=== PATIENT | male | born 2000 | race Caucasian/White ===

== ENCOUNTER 2021-08-01 10:46 | Emergency (ER) | payer BC, SELFPAY ==
[2021-08-01 10:55] VITALS: BP 155/88; PULSE 89; RESP 17; TEMP 35.9; O2SAT 99
[2021-08-01 11:39] VITALS: BP 154/70; PULSE 83; RESP 21; O2SAT 97
[2021-08-01 12:26] LABS: Basophils Percent Auto 0.3 % (0.2-1.2); Eosinophils Absolute Auto 0.1 K/mm3 (0-0.3); Hemoglobin 15.7 g/dL (14.0-18.0); Immature Granulocyte Absolute 0.01 K/mm3 (0.00-0.031); Immature Granulocyte Percent A 0.2 % (0-0.5); Lymphocytes Absolute Auto 1.02 K/mm3 (0.9-3.2); Mean Corpuscular HGB Conc 34.1 g/dl (32-36); Mean Corpuscular Hemoglobin 29.2 pg (26-34); Mean Corpuscular Volume 85.7 fl (80-100); Mean Platelet Volume 11.6 fl (7.4-10.4); Monocytes Absolute Auto 0.6 K/mm3 (0.1-0.6); Monocytes Percent Auto 9.6 % (2.6-8.5); Neutrophils Absolute Auto 4.6 K/mm3 (1.3-6.7); Neutrophils Percent Auto 71.9 % (45.5-73.1); Platelet Count Result 194 k/mm3 (150-375); Red Blood Count 5.37 M/mm3 (4.6-6.20); Red Cell Distribution Width 12.6 % (11.5-14.5); White Blood Count 6.4 K/mm3 (4.5-10.0)
[2021-08-01 12:44] LABS: Alanine Aminotransferase 49 U/L (4-50); Albumin Level 4.4 g/dL (3.5-5.1); Alkaline Phosphatase 74 U/L (38-126); Anion Gap 7 mmol/L (8-16); Aspartate Amino Transferase 28 U/L (17-59); Bilirubin,Total 1.2 mg/dL (0.2-1.3); Blood Urea Nitrogen 15 mg/dL (9-20); Calcium 9.7 mg/dL (8.4-10.2); Carbon Dioxide 25 mmol/L (22-30); Chloride 107 mmol/L (98-107); Estimated CRCL calculation 252 ml/min; Estimated Glomerular Filt Rate > 60; Glucose 108 mg/dL (65-110); Potassium 4.3 mmol/L (3.4-5.0); Sodium 139 mmol/L (137-145)
[2021-08-01 13:05] VITALS: BP 147/73; PULSE 64; RESP 18; O2SAT 99
--- NOTE | 2021-08-01 14:05 | ED.GENADULT ---
HPI - General Adult General Chief complaint: Recheck/Abnormal Lab/Rx Stated complaint: high blood pressure Time Seen by Provider: 08/01/21 11:11 Source: patient Mode of arrival: ambulatory Limitations: no limitations History of Present Illness HPI narrative: 21-year-old here with complaints of nausea, feeling dizzy since this morning. 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 Upon arrival patient denies any chest pain, dizziness, abdominal pain. Patient states that he was diagnosed with high blood pressure long time ago but has never followed up with a doctor. Onset (ago): hour(s) (2) Related Data Allergies Allergy/AdvReac Type Severity Reaction Status Date / Time amoxicillin Allergy Hives Verified 08/01/21 11:14 Review of Systems Review of Systems: All systems reviewed & are unremarkable except as noted in HPI and below Constitutional: Constitutional: Reports no additional constitutional complaints Eyes: Eyes: Reports no additional eye complaints ENT: Reports system reviewed and no additional complaints, except as documented Cardiovascular: Cardiovascular: Reports no additional cardiovascular complaints Respiratory: Respiratory: Reports no additional respiratory complaints Gastrointestinal: Gastrointestinal: Reports as per HPI Musculoskeletal: Musculoskeletal: Reports no additional musculoskeletal complaints Integumentary/Breasts: Skin/Breast: Reports system reviewed and no additional complaints, except as docu Exam Narrative: GENERAL: Well-appearing, well-nourished, and in no acute distress. HEAD: Normocephalic, atraumatic. EYES: PERRLA and EOMI. ENT: Nares clear, no rhinorrhea or epistaxis. Mucous membranes moist. NECK: Supple. CHEST: Clear to auscultation. No respiratory distress. HEART: Regular rate and rhythm. No murmur heard. Normal peripheral pulses. ABDOMEN: Soft, nontender, nondistended, normal active bowel sounds. EXTREMITIES: Normal range of motion. No edema. SKIN: Warm, dry, no rash. NEURO: No focal deficits. Alert and oriented x3. PSYCH: Normal mood and affect. Course Course Emergency Course: Inform patient about his lab work, advised him to be on low-salt diet, exercise and weight reduction. Take medication as prescribed. Follow-up with Dr. Valerio. I did discuss with Dr. Valerio will see the patient if he can make an appointment Vital Signs Vital signs: Vital Signs Temperature 35.9 C L 08/01/21 10:55 Pulse Rate 89 08/01/21 10:55 Respiratory Rate 17 08/01/21 10:55 Blood Pressure 155/88 H 08/01/21 10:55 Pulse Oximetry 99 08/01/21 10:55 Temperature 35.9 C L 08/01/21 10:55 Pulse Rate 64 08/01/21 13:05 Respiratory Rate 18 08/01/21 13:05 Blood Pressure 147/73 H 08/01/21 13:05 Pulse Oximetry 99 08/01/21 13:05 Medical Decision Making Vital Signs Vital Signs: Vital Signs Temperature 35.9 C L 08/01/21 10:55 Pulse Rate 89 08/01/21 10:55 Respiratory Rate 17 08/01/21 10:55 Blood Pressure 155/88 H 08/01/21 10:55 Pulse Oximetry 99 08/01/21 10:55 Temperature 35.9 C L 08/01/21 10:55 Pulse Rate 64 08/01/21 13:05 Respiratory Rate 18 08/01/21 13:05 Blood Pressure 147/73 H 08/01/21 13:05 Pulse Oximetry 99 08/01/21 13:05 Lab Data Result diagrams: 08/01/21 12:20 08/01/21 12:19 Labs: Lab Results 08/01/21 08/01/21 Range/Units 12:19 12:20 WBC 6.4 (4.5-10.0) K/mm3 RBC 5.37 (4.6-6.20) M/mm3 Hgb 15.7 (14.0-18.0) g/dL Hct 46.0 (42.0-52.0) % MCV 85.7 (80-100) fl MCH 29.2 (26-34) pg MCHC 34.1 (32-36) g/dl RDW 12.6 (11.5-14.5) % Plt Count 194 (150-375) k/mm3 MPV 11.6 H (7.4-10.4) fl Immature Gran % (Auto) 0.2 (0-0.5) % Neut % (Auto) 71.9 (45.5-73.1) % Lymph % (Auto) 16.0 L (18.3-44.2) % [place] % (Auto) 9.6 H
[2021-08-01 15:24] LABS: Add Urine Microscopic? YES; Appearance Urine Clear (Clear); Bilirubin Urine Negative (Negative); Blood Urine Negative (Negative); Color Urine Yellow (Yellow); Glucose Urine UA Negative (Negative); Ketones Urine Negative (Negative); Leukocyte Esterase Ur Negative LEU/UL (Negative); Mucus Urine Rare /lpf; Nitrate Urine Negative (Negative); Protein Urine 1+ mg/dL (Negative); Urobilinogen Urine Negative mg/dL (<2.0); WBC Urine 0-3 /hpf
== END 2021-08-01 14:31 | disposition home or self-care (01) ==
PROVIDERS: Emergency Provider Family Medicine; PCP Internal Medicine
DX: I10 Essential (primary) hypertension (principal)
CPT/HCPCS: 36415; 80053; 81001; 84443; 85025; 99283

== ENCOUNTER 2025-10-16 10:17 | Emergency (ER) | payer BC, SELFPAY ==
--- NOTE | ~2025-10-16 | XR_ITS ---
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 Findings: Nondisplaced fracture of the radial head with intra-articular extension No significant degenerative changes. Soft tissues unremarkable. Impression: Radial head fracture Reviewed, dictated and finalized at location P. AL KILLER Impression: Radial head fracture
--- NOTE | ~2025-10-16 | XR_ITS ---
XR forearm LT 2V 10/16/2025 11:05 INDICATION: Left arm pain PROCEDURE: 2 views left forearm COMPARISON: 10/16/2025 FINDINGS: Fracture, dislocation or subluxation is not identified. The soft tissues appear within normal limits. No foreign bodies are identified. IMPRESSION: 1: NO ACUTE BONE OR JOINT ABNORMALITY IDENTIFIED. Reviewed, dictated and finalized at location I. CELL OPERATOR
--- NOTE | ~2025-10-16 | XR_ITS ---
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 Findings: No acute fracture or malalignment. No significant degenerative changes. Soft tissues unremarkable. Impression: No acute fracture or malalignment. Reviewed, dictated and finalized at location P. EGE TUTOR Impression: No acute fracture or malalignment.
[2025-10-16 10:23] VITALS: PULSE 96; RESP 20; O2SAT 99
[2025-10-16 10:26] VITALS: BP 170/105; PULSE 86; RESP 20; TEMP 36.4; O2SAT 98
--- OUTSIDE RECORDS SUMMARY | 2025-10-16 10:50 | XMS_ITS | Data Portability ---
Author Organization [facility] [place], Main Office Address [address] [place] [address] Assessment No assessment recorded. Plan of Treatment Reminders Order Date Submit Date Provider Last Modified By Organization Details Last Modified Time Details Appointments None record ed. Lab None record ed. Referral None record ed. Procedures None record ed. Surgeries None record ed. Imaging None record ed. Medication Orders None record ed. Patient TargetsNo targets recorded. Patient InstructionsNo instructions recorded. Reason for Referral None Reported. Results Created Date Observation Date Name Description Value Unit Range Abnormal Flag Note LastModifiedBy Organization Detail LastModifiedTime 02/18/20 21 02/17/2021 TSH, serum or plasm a thyroid-stim ulating hormone 1.720 uIU/m L 0.465- 4.680 Not Available [facility] (Lab) [address] [place], [address], 02/17/2021 18:52:53 02/18/20 21 02/17/2021 lipid panel , serum cholesterol 159 mg/dL 140-19 9 NIH DEBBIE NSUS RECOM MENDA TION FOR FABIANA STERO L: ADULT CHILD LOW RISK: <200 <170 BORDE RLINE : <200- 239 ----- HIGH RISK: >240 >200 Not Available [facility] (Lab) [address] [place], [address], 02/17/2021 18:19:42 02/18/2002/17/2021 lipid panel , serum triglyceride s 81 mg/dL 0-150 NIH DEBBIE NSUS REPOR T RECOM MENDA TION FOR TRIGL YCERI ROGELIO: ADULT CHILD LOW RISK: <150 ----- BODER LINE: 150-1 99 ----- HIGH RISK: >200 ----- Not Available [facility] (Lab) [address] [place], [address], 02/17/2021 18:19:42 02/18/20 21 02/17/2021 lipid panel , serum HDL cholesterol 52 mg/dL 40- Not Available [facility] (Lab) [address] [place], [address], 02/17/2021 18:19:42 02/18/20 21 02/17/2021 lipid panel , serum LDL cholesterol, calculated 91 mg/dL 0-130 NIH DEBBIE NSUS REPOR T RECOM MENDA TIONS FOR LDL: ADULT CHILD LOW RISK <130 <110 (OPTI MAL LDL) <100 ----- NOHELIA RLINE : 130-1 59 ----- HIGH RISK: >160 >130 A TRIGL YCERI DE RESUL T >400 INVAL IDATE S THE CALCU LATIO N FOR LDL FRACT IONAT ION - THE LDL RESUL T WILL NOT BE REPOR BRONSON. Not Available [facility] (Lab) [address] [place], [address], 02/17/2021 18:19:42 02/18/2002/17/2021 CMP, serum or plasm a sodium 138 mmol/ L 137-14 5 Not Available [facility] (Lab) [address] [place], [address], 02/17/2021 18:19:37 02/18/2002/17/2021 CMP, serum or plasm a potassium 4.3 mmol/ L 3.5-5. 1 Not Available [facility] (Lab) [address] [place], [address], 02/17/2021 18:19:37 02/18/20 21 02/17/2021 CMP, serum or plasm a chloride 103 mmol/ L 98-107 Not Available [facility] (Lab) [address] [place], [address], 02/17/2021 18:19:37 02/18/20 21 02/17/2021 CMP, serum or plasm a carbon dioxide 26 mmol/ L 22-30 Not Available [facility] (Lab) [address] [place], [address], 02/17/2021 18:19:37 02/18/20 21 02/17/2021 CMP, serum or plasm a agap 13.3 mmol/ L 14-22 low Not Available [facility] (Lab) [address] [place], [address], 02/17/2021 18:19:37 02/18/20 21 02/17/2021 CMP, serum or plasm a glucose 95 mg/dL 70-99 Not Available [facility] (Lab) [address] [place], [address], 02/17/2021 18:19:37 02/18/20 21 02/17/2021 CMP, serum or plasm a BUN 15 mg/dL 8-19 Not Available [facility] (Lab) [address] [place], [address], 02/17/2021 18:19:37 02/18/20 21 02/17/2021 CMP, serum or plasm a creatinine 0.70 mg/dL 0.66-1 .25 Not Available [facility] (Lab) [address] [place], [address], 02/17/2021 18:19:37 02/18/2002/17/2021 CMP, serum or plasm a GFR >60 Refer ence Range : [place] ge GFR Healt hy Adult : >60 mL/mi n/1.7 3 m2 Chron ic Kidne y Disea se: 15-60 mL/mi n/1.7 3 m2 Kidne y Failu re: <15/m L/min /1.73 m2 www.n iddk. nih.g ov MDRD study equat ion hasn' t been valid ated in child jerman <18 yrs of age, pregn ant women , the elder ly >85 yrs of age, or in some racia l or ethni c subgr oups, suc as Hispa nics. Outsi de the valid ated alec eters , estim ated GFR is less accur ate requi ring clini tiesha judgm ent on a case by case basis . Clini tiesha inter preta tion for other races and ages must be made by the clini monique . Futhe rmore , any of th e limit ation s with the use of serum creat inine relat ed to nutri megan l statu s o r medic ation usage hasn' t accou nted for the MDRD Study equat ion. For perso ns < 18 yrs of age, a pedia tric GFR calcu lator can be locat ed on the [facility] websi te: https ://olive tilley.kathya fuentes.o rg/pr carmeness ional s/kdo qi/gf r_cal culat or Not Available [facility] (Lab) [address] [place], [address], 02/17/2021 18:19:37 02/18/20 21 02/17/2021 CMP, serum or plasm a alkaline phosphatase 74 U/L 38-126 Not Available [facility] (Lab) [address] [place], [address], 02/17/2021 18:19:37 02/18/20 21 02/17/2021 CMP, serum or plasm a alanine aminotransfe rase 65 U/L 0-50 high Not Available [facility] (Lab) [address] [place], [address], 02/17/2021 18:19:37 02/18/20 21 02/17/2021 CMP, serum or plasm a aspartate aminotransfe rase 32 U/L 13-38 Not Available [facility] (Lab) [address] [place], [address], 02/17/2021 18:19:37 02/18/20 21 02/17/2021 CMP, serum or plasm a bilirubin, total 1.40 mg/dL 0.20-1 .30 high Not Available [facility] (Lab) [address] [place], [address], 02/17/2021 18:19:37 02/18/20 21 02/17/2021 CMP, serum or plasm a calcium 10.2 mg/dL 8.4-10 .2 Not Available [facility] (Lab) [address] [place], [address], 02/17/2021 18:19:37 02/18/20 21 02/17/2021 CMP, serum or plasm a total protein 7.2 g/dL 6.3-8. 2 Not Available [facility] (Lab) [address] [place], [address], 02/17/2021 18:19:37 02/18/20 21 02/17/2021 CMP, serum or plasm a albumin 4.5 g/dL 3.4-5. 0 Not Available [facility] (Lab) [address] [place], [address], 02/17/2021 18:19:37 02/18/20 21 02/17/2021 CMP, serum or plasm a globulin 2.7 g/dL 2.6-4. 2 Not Available [facility] (Lab) [address] [place], [address], 02/17/2021 18:19:37 02/18/20 21 02/17/2021 CMP, serum or plasm a A/G ratio 1.7 ratio 1.0-2. 0 Not Available [facility] (Lab) [address] [place], [address], 02/17/2021 18:19:37 Result Notes None recorded. Problems Name Problem SNOMED Code Status Onset Date Resolution Date Notes Provider Name and Address Organization Details Recorded Time Seasonal allergy 097581237 Active 018 Not Available [facility] 08/03/202 3 18:22:05 Anxiety 99356535 Active 021 Not Available [facility] 3 18:22:05 Abdominal pain 70751736 Active 022 Not Available [facility] 3 18:22:04 COVID-19 362101231 Active 022 Not Available [facility] 3 18:22:05 Chest pain 46066029 Active 023 Fermín Cameron MD [address] [facility], [facility] [address], [place], [address] , [facility] [employer] 3 16:47:55 Problem Notes None recorded. Procedures Surgical History Date Name Laterality Status Provider Name and Address Organization Details Recorded Time Tonsillectomy completed Not Available [facility] 01/17/2023 19:44:33 Imaging Results None recorded. Procedure Notes None recorded. Medical Equipment None Reported. Allergies Allergen ID Allergen Name Allergen Category Reaction Reaction Severity Criticality Documentation Date Start Date Code Code System Note Provider Name and Address Organization Details Recorded Time 11841 Product containin g penicilli n (product) medicatio n Not available Not available Not available 01/17/2023 97988 8001 SNOMED Not Available [facility] 3 19:45:36 Medications Name Sig Start Date Stop Date Status Note LastModified by Organization Details LastModified Time cyclobenzap rine 10 mg tablet Take 1 tablet 3 times a day by oral route. active Not Available Not Available No t Available tizanidine 4 mg tablet 02/07 completed Not Available Not Available Not Available Medrol (Pedro) 4 mg tablets in a dose pack UUD on packet 02/08 completed Not Available Not Available Not Available prednisone 20 mg tablet 02/07 completed Not Available Not Available Not Available sertraline 100 mg tablet 02/07 completed Not Available Not Available Not Available Zithromax Z-Pedro 250 mg tablet TAKE 2 TABLETS (500 MG) BY ORAL ROUTE ONCE DAILY FOR 1 DAY THEN 1 TABLET (250 MG) BY ORAL ROUTE ONCE DAILY FOR 4 DAYS 02/08 completed Not Available Not Available Not Available Lamisil AT 1 % topical cream APPLY TO THE AFFECTED AND SURROUNDI NG AREAS OF SKIN BY TOPICAL ROUTE ONCE DAILY 02/07 completed Not Available Not Available Not Available lorazepam 0.5 mg tablet TAKE 1 TABLETS BY MOUTH EVERY DAY NEEDED 06/21 completed Not Available Not Available Not Available buspirone 10 mg tablet TAKE 1 TABLET BY MOUTH TWICE A DAY NEEDED. 08/09 completed Not Available Not Available Not Available lisinopril 10 mg tablet TAKE 1 TABLET BY MOUTH DAILY 09/08 completed Not Available Not Available Not Available doxycycline hyclate 100 mg tablet 02/07 completed Not Available Not Available Not Available naproxen 500 mg tablet Take 1 tablet twice a day by oral route. active Not Available Not Available No t Available Paxlovid 300 mg (150 mg x 2)-100 mg tablets in a dose pack TAKE 1 DOSE PACK BY MOUTH DIRECTED 06/21 completed Not Available Not Available Not Available Vitals Date Recorded Body mass index (BMI) Body height Oxygen saturation Heart rate Respiratory rate Body temperature Body weight Systolic And Diastolic Provider Name and Address Organization Details Last Updated DateTime 1 47.7 kg/m2 198.12 cm 96 % 88 /min 16 /min 97.8 [degF] 457549. 65 g 150/96 mm[Hg] Not Available [facility] 3 19:44:38 Date Recorded Body mass index (BMI) Body height Oxygen saturation Heart rate Body weight Systolic And Diastolic Provider Name and Address Organization Details Last Updated DateTime 2 45 kg/m2 198.12 cm 98 % 80 /min 212311. 43 g 120/80 mm[Hg] Not Available [facility] 3 19:44:38 Date Recorded Body weight Body mass index (BMI) Body height Body temperature Heart rate Oxygen saturation Systolic And Diastolic Provider Name and Address Organization Details Last Updated DateTime 3 363053. 91 g 46.8 kg/m2 198.12 cm 96.9 [degF] 87 /min 98 % 130/80 mm[Hg] BEN[facility] 3 16:25:01 Date Recorded Body mass index (BMI) Body height Oxygen saturation Heart rate Body temperature Body weight Systolic And Diastolic Provider Name and Address Organization Details Last Updated DateTime 1 45.8 kg/m2 198.12 cm 99 % 86 /min 97.4 [degF] 650498. 58 g 140/86 mm[Hg] Not Available [facility] 3 19:44:38 Date Recorded Body mass index (BMI) Body height Oxygen saturation Heart rate Body temperature Body weight Systolic And Diastolic Provider Name and Address Organization Details Last Updated DateTime 1 45.8 kg/m2 198.12 cm 98 % 77 /min 96.9 [degF] 178339. 58 g 134/80 mm[Hg] Not Available [facility] 3 19:44:38 Social History Question Answer Notes LastModified by [employer] Details LastModified Time Tobacco Smoking Status Never Smoker Not Available [facility] 01/17/2023 19:44:29 What Is Your Level Of Caffeine Consumption? Occasional [id number] Information not available 01/17/2023 How Much Tobacco Do You Chew? None [id number] Information not available 01/17/2023 In The 14 Days Before Symptom Onset, Have You Had Close Contact With A Laboratory-confirm ed COVID-19 While That Case Was Ill? No [id number] Information not available 01/17/2023 In The 14 Days Before Symptom Onset, Have You Had Close Contact With A Person Who Is Under Investigation For COVID-19 While That Person Was Ill? No [id number] Information not available 01/17/2023 Which Illicit Or Recreational Drugs Have You Used? None [id number] Information not available 01/17/2023 Do You Use Sunscreen Routinely? No [id number] Information not available 01/17/2023 Sex: Male Functional Status Question Answer Note LastModified by [employer] Details LastModified Time What is your level of alcohol consumption? Occasional [id number] Information not available 01/17/2023 Do you or have you ever used smokeless tobacco? Never used smokeless tobacco [id number] Information not available 01/17/2023 Do you or have you ever used e-cigarettes or vape? Never used electronic cigarettes [id number] Information not available 01/17/2023 Mental Status None recorded. Family History Nothing Reported. Medical History No medical history recorded. Past Encounters Encounter ID Performer Location Encounter Start Date Encounter Closed Date Diagnosis/Indication Diagnosis SNOMED-CT Code Diagnosis ICD10 Code Diagnosis IMO Codes Diagnosis Note [id number] Fermín Cameron MD [facility] [address] [place] [address] 02/07/2021 00:00:00 02/07/2021 15:59:36 [id number] Fermín Cameron MD [facility] [address] [place] [address] 08/09/2021 00:00:00 08/09/2021 15:31:50 [id number] Fermín Cameron MD [facility] [address] [place] [address] 09/08/2021 00:00:00 09/08/2021 10:53:55 [id number] Fermín Cameron MD [facility] [address] [place] [address] 02/08/2022 00:00:00 02/08/2022 16:04:43 [id number] Fermín Cameron MD [facility] [address] [place] [address] 06/21/2023 16:08:12 06/21/2023 17:21:01 Chest pain 48035914 R07.9 has improved, looked like musculoske letaladvis ed to lose weight Health Concerns Section Related Observation LastModified by Organization Detai ls LastModified Time None Recorded Concern Status LastModified by Organization Details LastModified Time None Recorded Advance Directives Directive None Recorded Payers Insurance Date Sequence Insurance Name Policy Number Policy Monroy Covered Member ID Monroy Member ID Guarantor Name 10/31/2024 1 [place] [id number] Alessandroer Candy [id number] Henry Candy 09/16/2023 1 [place] [id number] Alessandroer Candy [id number] Henry Candy Notes Date Note Type Note Provider Name and Address Organization Details Recorded Time 06/21/2023 text/html He is here today for a ER follow upHe [facility] pain radiating to left shoulderHad just woke up that morning feeling it. Lasted that day, felt better yesterday and today it is not bothering him at all.Labs, CXR and EKG were done., reviewedHe had no cough, sob, or feverPain is all gonePain was coming on arm movements Fermín Cameron MD [address] [facility], [facility] [address], [place], [address], [place] [facility] 06/21/2023 16:48:41
[2025-10-16] MEDS: ACETAMINOPHEN 500 MG TABLET 1000 MG PO (11:05)
[2025-10-16] MEDS: IBUPROFEN 400 MG TABLET 800 MG PO (11:05)
--- NOTE | 2025-10-16 11:12 | ED_ITS ---
HPI - General Adult General Chief complaint: Extremity Injury, Upper Stated complaint: I think i broke my L arm Time Seen by Provider: 10/16/25 10:30 History of Present Illness HPI narrative: This is a 25-year-old male presenting with left arm pain. Yesterday he was going down steps when he fell through the bottom step landing on his left arm. He has then had significant pain in his left forearm. No other injuries. Related Data Allergies Allergy/AdvReac Type Severity Reaction Status Date / Time amoxicillin Allergy Hives Verified 10/16/25 10:25 Exam Narrative: APPEARANCE: No apparent distress. Head: atraumatic. EYES: EOMI, NOSE: Atraumatic NECK: Trachea midline RESPIRATORY: No increased rate of breathing clear to auscultation CARDIOVASCULAR: RRR, no peripheral edema ABDOMINAL: Non-distended MUSCULOSKELETAl: No obvious deformities focal exam left arm showed tenderness palpation over the proximal forearm over the radial head. 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 Radial ulnar pulses are intact. NEURO: Alert. Moving 4/4 extremities SKIN:: Warm, dry. Normal color PSYCHIATRIC: Normal affect Course Vital Signs Vital signs: Vital Signs Pulse Rate 96 10/16/25 10:23 Respiratory Rate 20 10/16/25 10:23 Pulse Oximetry 99 10/16/25 10:23 Oxygen Delivery Room Air 10/16/25 10:23 Temperature 97.6 F 10/16/25 10:26 Pulse Rate 86 10/16/25 10:26 Respiratory Rate 20 10/16/25 10:26 Blood Pressure 170/105 H 10/16/25 10:26 Pulse Oximetry 98 10/16/25 10:26 Oxygen Delivery Room Air 10/16/25 10:23 Medical Decision Making [facility] Narrative Medical decision making narrative: -Course: 25-year-old male presenting with left arm pain. X-ray shows radial head fracture. Patient placed in a sling, given pain control and given follow- up with . Patient discharged. -DDX includes but is not limited to: Elbow fracture, radial head fracture, forearm fracture, wrist fracture -Co-morbidities complicating care: Morbid obesity Vital Signs Vital Signs: Vital Signs Pulse Rate 96 10/16/25 10:23 Respiratory Rate 20 10/16/25 10:23 Pulse Oximetry 99 10/16/25 10:23 Oxygen Delivery Room Air 10/16/25 10:23 Temperature 97.6 F 10/16/25 10:26 Pulse Rate 86 10/16/25 10:26 Respiratory Rate 20 10/16/25 10:26 Blood Pressure 170/105 H 10/16/25 10:26 Pulse Oximetry 98 10/16/25 10:26 Oxygen Delivery Room Air 10/16/25 10:23 Discharge Plan Discharge Clinical Impression: Fracture of head of radius Patient Disposition: Home Condition: Stable Instructions: Antibiotic Form, Arm Fracture in Adults (ED) Additional Instructions: You have a forearm fracture in your radial head. Please use the sling for comfort. Use Motrin/Tylenol for pain control. Please follow-up with Dr. Sawant early next week. Patient Language: Estonian Prescriptions: New ibuprofen 800 mg tablet 800 mg PO TID PRN (Reason: pain) 7 Days Qty: 21 0RF acetaminophen 500 mg tablet 1,000 mg PO TID PRN (Reason: rubén) 7 Days Qty: 42 0RF No Action lisinopril 10 mg tablet 10 mg PO DAILY Qty: 30 0RF Follow-up/Referrals: Nisha,Fermín Arguelles MD [Primary Care Provider, Unknown] Anthony Sawant MD [Physician, Orthopedics] - 1 Week Clinical Impression: Fracture of head of radius
[2025-10-16] MEDS: oxyCODONE HCL (*CRX) 5 MG TAB IR PO (11:30)
[2025-10-16 11:49] VITALS: BP 149/74; PULSE 84; RESP 19; O2SAT 100
== END 2025-10-16 11:50 | disposition home or self-care (01) ==
PROVIDERS: Emergency Provider Emergency Medicine; PCP Internal Medicine
DX: S52.125A Nondisplaced fracture of head of left radius, initial encounter for closed fracture (principal); W10.9XXA Fall (on) (from) unspecified stairs and steps, initial encounter
CPT/HCPCS: 73080; 73090; 73110; 99284; A4565; A9270